=== PATIENT | male | born 1990 | race Caucasian/White ===

== ENCOUNTER 2017-03-27 22:36 | Emergency (ER) | payer SELFPAY ==
[~2017-03-27] VITALS: Ht 182.9 cm; Wt 144.5 kg
[2017-03-27 22:41] VITALS: Ht 182.9 cm; Wt 144.5 kg
[2017-03-28] MEDS ORDERED: KETOROLAC 30 MG INJ IV STA (00:24)
[2017-03-28] MEDS ORDERED: SOD CHLORIDE 0.9% 1,000 ML IV ONE (00:30)
[2017-03-28] MEDS ORDERED: CLINDAMYCIN 600 MG/D5W (PMX) 50 ML IVPB SCH (00:30)
[2017-03-28] MEDS ORDERED: ACETAMINOPHEN 325 MG TAB PO ONE (00:30)
--- NOTE | 2017-03-28 00:51 | ERD ---
ER Documentation Chief Complaint Date/Time DATE: 03/28/17 TIME: 00:47 Chief Complaint LT LEG PAIN +SWELLING. NO TRAUMA DENIES SOB HPI 26-year-old male presents here in emergency department for complaints of left lower leg pain and swelling that started yesterday. Patient noticed some redness and swelling. Patient is complaining of pain throbbing pain, 6/10 scale , is worse upon touching the area. Patient denies any trauma and affected area. Patient denies any numbness or tingling. Patient has been having dryness of the left lower foot and some macerated skin from fungal infection for years now. ROS All systems reviewed and are negative except as per history of present illness. Medications Home Meds Active Scripts Clindamycin Hcl* (Clindamycin Hcl*) 300 Mg Capsule, 300 MG PO TID for 10 Days, CAP Prov:EDER FERNANDEZ NP 03/28/17 Ibuprofen* (Motrin*) 600 Mg Tab, 600 MG PO Q6H Y for PAIN AND OR ELEVATED TEMP, #30 TAB Prov:EDER FERNANDEZ NP 03/28/17 Reported Medications [none] Unknown Strength No Conflict Check 03/28/17 Allergies Allergies: Coded Allergies: No Known Allergies (Verified Allergy, Mild, 03/27/17) PMhx/Soc Medical and Surgical Hx: pt denies Medical Hx, pt denies Surgical Hx History of Surgery: No Anesthesia Reaction: No Hx Neurological Disorder: No Hx Respiratory Disorders: No Hx Cardiac Disorders: No Hx Psychiatric Problems: No Hx Miscellaneous Medical Probl: No Hx Alcohol Use: No Hx Substance Use: Yes (marijuana) Hx Tobacco Use: No Smoking Status: Never smoker FmHx Family History: No coronary disease, No diabetes, No other Physical Exam Vitals Vital Signs Date Time Temp Pulse Resp B/P Pulse Ox O2 Delivery O2 Flow Rate FiO2 03/28/17 02:20 98.8 20 133/78 96 03/27/17 22:41 100.5 118 20 133/78 96 Physical Exam GENERAL: The patient is well developed and appropriate for usual state of health, in no apparent distress. CHEST: Clear to auscultation bilaterally. There are no rales, wheezes or rhonchi. HEART: Regular rate and rhythm. No murmurs, clicks, rubs or gallops. No S3 or S4. ABDOMEN: Soft, nontender and nondistended. Good bowel sounds. No rebound or guarding. No gross peritonitis. No gross organomegaly or masses. No Nixon sign or McBurney point tenderness. BACK: No midline or flank tenderness. EXTREMITIES: Equal pulses bilaterally. There is no peripheral clubbing, cyanosis or edema. No focal swelling or erythema. Full range of motion. Grossly neurovascularly intact. NEURO: Alert and oriented. Cranial nerves 2-12 intact. Motor strength in all 4 extremities with 5/5 strength. Sensation grossly intact. Normal speech and gait. SKIN: Noted redness induration and swelling of the left lower leg, to the mid lower leg area, tenderness to patient, +1 pitting edema noted. No Homans sign noted. No fluctuance noted. Tender on palpation. Noted macerated skin and some dryness of the skin in between the toes of the left foot and on the soles of the left foot.There is no apparent petechia. The skin is warm and dry. HEMATOLOGIC AND LYMPHATIC: There is no evidence of excessive bruising or lymphedema. No gross cervical, axillary, or inguinal lymphadenopathy. Results 24 hrs Current Medications Medications (Trade) Dose Ordered Sig/Hope Route PRN Reason Start Time Stop Time Status Last Admin Dose Admin Clindamycin HCl/ Dextrose 50 ml @ 50 mls/hr ONCE IVPB 03/28/17 00:30 03/28/17 01:29 DC 03/28/17 01:24 Sodium Chloride (NS) 1,000 ml @ 1,000 mls/hr Q1H ONCE IV 03/28/17 00:30 03/28/17 01:29 DC 03/28/17 01:08 Ketorolac Tromethamine (Toradol) 30 mg ONCE STAT IV 03/28/17 00:24 03/28/17 00:26 DC 03/28/17 01:10 Acetaminophen (Tylenol Tab) 650 mg ONCE ONCE PO 03/28/17 00:30 03/28/17 00:31 DC 03/28/17 01:09 Normal saline IV bolus was given here in emergency department for rehydration, patient tolerated IV fluids.Patient was given medicines for fever control here in the emergency department. After treatment, patient temperature improved and lower. Patient appears well and is hemodynamically stable. Patient was given medication for pain here in emergency department, after treatment, patient verbalized feeling much better. Patient's pain is improved. IV clindamycin was given, tolerated medication well PROCEDURE: ULTRASOUND LEFT LOWER EXTREMITY VENOUS CLINICAL INDICATION: 26-year-old male with left lower extremity swelling. TECHNIQUE: Multiple sonographic images of the left lower extremity deep venous system was obtained utilizing grayscale, color-flow, compressive sonography and doppler imaging with augmentation. The images were reviewed on a PACS workstation. COMPARISON: None. FINDINGS: There is normal compressibility and flow within the left common femoral, deep femoral, superficial femoral, popliteal, posterior tibial and peroneal veins. IMPRESSION: No sonographic evidence for left lower extremity deep venous thrombosis. .Kvng Mac MD, MD Date Time Electronically viewed and signed by .Kvng Mac MD, MD on 03/28/2017 01:07 .M/ CC: EDER FERNANDEZ [employer] Procedures/MDM Medical Decision Making: Patient's pain is most likely consistent with a cellulitis, most likely brought about by tinea pedis. There is no suspicion for neurovascular compromise. Patient has intact sensation and circulation of the affected extremity. There is low suspicion for septic arthritis. Patient fever is controlled. EDSON doesnt show DVT. Disposition: Home. Patient is given prescription for ibuprofen for pain, Clindamycin. Patient was advised to elevate the affected area and apply ice on affected area. Patient was advised that if symptoms are worse, numbness, tingling, high fever, unable to move joint, worsening symptoms, to return to emergency department immediately. Otherwise, patient is advised to follow up with here in the ER in 48 hrs for recheck or sooner for worsening symptoms. Departure Diagnosis: Primary Impression: Cellulitis Site of cellulitis: extremity Site of cellulitis of extremity: lower extremity Laterality: left Qualified Code: L03.116 - Cellulitis of left lower extremity Additional Impression: Tinea pedis Laterality: left Qualified Code: B35.3 - Tinea pedis of left foot Condition: Stable Patient Instructions: Athlete'S Foot, Cellulitis Additional Instructions: Patient is given prescription for ibuprofen for pain, Clindamycin. Patient was advised to elevate the affected area and apply ice on affected area. Patient was advised that if symptoms are worse, numbness, tingling, high fever, unable to move joint, worsening symptoms, to return to emergency department immediately. Otherwise, patient is advised to follow up with here in the ER in 48 hrs for recheck or sooner for worsening symptoms. EDER FERNANDEZ NP Mar 28, 2017 00:51
--- NOTE | 2017-03-28 01:07 | RADRPT ---
PROCEDURE: ULTRASOUND LEFT LOWER EXTREMITY VENOUS CLINICAL INDICATION: 26-year-old male with left lower extremity swelling. TECHNIQUE: Multiple sonographic images of the left lower extremity deep venous system was obtained utilizing grayscale, color-flow, compressive sonography and doppler imaging with augmentation. The images were reviewed on a PACS workstation. COMPARISON: None. FINDINGS: There is normal compressibility and flow within the left common femoral, deep femoral, superficial f emoral, popliteal, posterior tibial and peroneal veins. IMPRESSION: No sonographic evidence for left lower extremity deep venous thrombosis. .Kvng Mac MD, MD Date Time Electronically viewed and signed by .Kvng Mac MD, MD on 03/28/2017 01:07 .Loc
[2017-03-28] MEDS ORDERED: IBUP-1542 PO (02:02)
[2017-03-28] MEDS ORDERED: CLIN-73 PO (02:02)
[2017-03-28 02:20] VITALS: BP 133/78; RESP 20; TEMP 98.8
== END 2017-03-28 02:21 | disposition home or self-care (01) ==
LOC: FTE 22:36
DX: L03.116 Cellulitis of left lower limb (principal); B35.3 Tinea pedis
CPT/HCPCS: 93971; 96374; 96375; 99285; J1885; J7030

== ENCOUNTER 2018-03-29 20:00 | Emergency (ER) | END 2018-03-29 22:54 | disposition home or self-care (01) ==

== ENCOUNTER 2018-05-29 00:01 | Emergency (ER) | END 2018-05-29 01:18 | disposition home or self-care (01) ==